=== PATIENT | female | born 1975 | race Caucasian/White ===

== ENCOUNTER 2020-10-25 11:52 | Inpatient (IN) | payer MEDICAID ==
[~2020-10-25] VITALS: Ht 167.6 cm; Wt 110.7 kg
[2020-10-25 13:52] LABS: Basophils # (auto) 0.1 10 ^3/uL (0-0.2); Basophils % (auto) 0.7 % (0.0-2.0); Eosinophils # (auto) 0.1 10 ^3/uL (0-0.8); Eosinophils % (auto) 0.8 % (0.0-7.0); Hematocrit 42.1 % (36.0-46.0); Hemoglobin 14.1 g/dL (12.2-16.2); Lymphocytes # (auto) 2.4 10 ^3/uL (0.4-5.4); Lymphocytes % (auto) 27.4 % (10.0-50.0); Mean Corpuscular Hemoglobin 27.6 pg (28.0-32.0); Mean Corpuscular Hgb Conc. 33.3 g/dL (32.0-36.0); Mean Corpuscular Volume 82.9 fL (80.0-100.0); Monocytes # (auto) 0.5 10 ^3/uL (0-1.3); Monocytes % (auto) 6.1 % (0.0-12.0); Neutrophils # (auto) 5.6 10 ^3/uL (1.6-8.6); Platelet Count (auto) 336 10^3/uL (140-450); Red Blood Cells 5.08 10^6/uL (4.0-5.20); Red Cell Distribution Width 15.4 % (11.8-14.3); White Blood Cell 8.6 10^3/uL (4.4-10.8)
[2020-10-25 14:02] LABS: Alanine Aminotransferase 30 U/L (13-56); Albumin 3.6 g/dL (3.4-5.0); Anion Gap 7 (5-15); Aspartate Aminotransferase 20 U/L (15-37); BUN/Creatinine Ratio 15.2; Blood Urea Nitrogen 12 mg/dL (7-18); Carbon Dioxide 23 mmol/L (21-32); Chloride 107 mmol/L (98-107); GFR African American 102 mL/min; GFR Non-African American 84 mL/min; Glucose 98 mg/dL (74-106); Potassium 4.1 mmol/L (3.5-5.1); Sodium 137 mmol/L (136-145)
[2020-10-25 14:06] LABS: Alkaline Phosphatase 77 U/L (45-117); Bilirubin, Total 0.2 mg/dL (0.2-1.0); Total Protein 7.9 g/dL (6.4-8.2)
[2020-10-25 17:01] LABS: Urine Bacteria FEW /hpf (None Seen); Urine Blood Negative /uL (Negative); Urine Specific Gravity 1.021 (1.001-1.035); Urine WBC 1 /hpf (0 - 5)
[2020-10-25] MEDS ORDERED: SODIUM CHLORIDE 0.9% 1,000 ML IVB ONE (17:15)
[2020-10-25 17:49] LABS: INR 0.98 (0.9-1.15); Partial Thromboplastin Time 27.7 sec (23.0-31.2)
[2020-10-25 18:26] LABS: Magnesium 2.1 mg/dL (1.6-2.6)
[2020-10-25 18:36] LABS: Alcohol, Urine < 3.0 mg/dL (0-10); Amphetamine Screen, Urine NEGATIVE (NEGATIVE); Barbiturate Scree,Urine NEGATIVE (NEGATIVE); Benzodiazephine Screen, Urine NEGATIVE (NEGATIVE); Cannabinoid Screen, Urine NEGATIVE (NEGATIVE); Cocaine Screen, Urine NEGATIVE (NEGATIVE); Opiate Scree,Urine NEGATIVE (NEGATIVE); Phencyclidine Screen, Urine NEGATIVE (NEGATIVE)
[2020-10-25] MEDS ORDERED: PHENYTOIN IV DILANTIN 1,000 MG in SODIUM CHL 0.9% 250 ML IV ONE (19:45)
[2020-10-25] MEDS ORDERED: cefTRIAXone 1GM/50ML D5W 50 ML IV ONE (20:15)
[2020-10-25] MEDS ORDERED: DOCUSATE SOD 100 MG CAP PO PRN (20:45)
[2020-10-25] MEDS ORDERED: ACETAMINOPHEN 325 MG TAB PO PRN (20:45)
[2020-10-25] MEDS ORDERED: ALUM & MAG HYDROX-SIMETH LIQ(MAALOX) 30 ML PO PRN (20:45)
[2020-10-25] MEDS: ONDANSETRON HCL 4 MG/2 ML VIAL IV PRN (22:27)
[2020-10-25] MEDS: SODIUM CHLOR 0.9% PF (SALINE LOCK) 10ML VIAL/SYR IV SCH (22:27)
[2020-10-25 22:34] VITALS: BP 126/70
[2020-10-25 23:00] VITALS: BP 126/70
[2020-10-25] MEDS: LORazepam 0.5 MG TAB PO PRN (23:48)
[2020-10-26] MEDS ORDERED: MELA3TAB27 PO (03:06)
[2020-10-26] MEDS ORDERED: ASPI-543 PO (03:06)
[2020-10-26] MEDS ORDERED: PHE100C PO (03:06)
[2020-10-26 05:00] VITALS: BP 98/57
[2020-10-26 05:36] LABS: Basophils # (auto) 0 10 ^3/uL (0-0.2); Basophils % (auto) 0.4 % (0.0-2.0); Eosinophils # (auto) 0.1 10 ^3/uL (0-0.8); Eosinophils % (auto) 1.2 % (0.0-7.0); Hematocrit 37.5 % (36.0-46.0); Lymphocytes # (auto) 2.5 10 ^3/uL (0.4-5.4); Lymphocytes % (auto) 30.7 % (10.0-50.0); Mean Corpuscular Hemoglobin 28.5 pg (28.0-32.0); Mean Corpuscular Hgb Conc. 34.6 g/dL (32.0-36.0); Mean Corpuscular Volume 82.2 fL (80.0-100.0); Monocytes # (auto) 0.5 10 ^3/uL (0-1.3); Monocytes % (auto) 6.8 % (0.0-12.0); Neutrophils # (auto) 4.9 10 ^3/uL (1.6-8.6); Neutrophils % (auto) 60.9 % (37.0-80.0); Nucleated Red Blood Cells % 0.1 %; Platelet Count (auto) 269 10^3/uL (140-450); Red Blood Cells 4.56 10^6/uL (4.0-5.20); Red Cell Distribution Width 15.4 % (11.8-14.3)
[2020-10-26 05:54] LABS: Calcium 8.1 mg/dL (8.5-10.1)
[2020-10-26 05:58] LABS: BUN/Creatinine Ratio 17.8
[2020-10-26] MEDS: SODIUM CHLOR 0.9% PF (SALINE LOCK) 10ML VIAL/SYR IV SCH ×3 (06:19→21:24)
[2020-10-26 08:00] VITALS: BP 98/57
[2020-10-26 09:00] VITALS: BP 94/52
[2020-10-26] MEDS ORDERED: PHENYTOIN IV DILANTIN 500 MG in SODIUM CHL 0.9% 100 ML IV SCH (10:00)
[2020-10-26 13:00] VITALS: BP 126/64
[2020-10-26] MEDS: HYDROcodone-ACET 5/325MG TAB PO PRN ×2 (13:42→18:19)
[2020-10-26] MEDS: PHENYTOIN SODIUM 100 MG CAP PO SCH ×2 (15:42→21:25)
[2020-10-26 17:00] VITALS: BP 113/58
[2020-10-26] MEDS ORDERED: LORazepam 2MG/ML-1ML VIAL IV PRN ×2 (21:15)
[2020-10-26] MEDS ORDERED: PHENYTOIN IV DILANTIN 500 MG in SODIUM CHL 0.9% 100 ML IV ONE (21:15)
[2020-10-26] MEDS: cefTRIAXone 1GM/50ML D5W 50 ML IV SCH (21:23)
[2020-10-26] MEDS: ONDANSETRON HCL 4 MG/2 ML VIAL IV PRN (21:31)
[2020-10-26 22:00] VITALS: BP 123/59
[2020-10-26] MEDS: PRAMIPEXOLE DIHYDROCHLORIDE MO 0.25 MG TAB PO SCH (22:31)
[2020-10-26 23:02] LABS: % Iron Saturation 21.9 % (15-50)
[2020-10-27] MEDS ORDERED: diphenhdrAMINE HCL 50 MG/1 ML VL IV PRN (02:45)
[2020-10-27] MEDS ORDERED: diphenhdrAMINE HCL 50 MG/1 ML VL IV ONE (02:45)
[2020-10-27] MEDS ORDERED: methylPREDNISolone SOD SUCC 125 MG/2 ML VL IV ONE (03:15)
[2020-10-27 05:00] VITALS: BP 125/58
[2020-10-27] MEDS: PHENYTOIN SODIUM 100 MG CAP PO SCH (06:00)
[2020-10-27] MEDS: SODIUM CHLOR 0.9% PF (SALINE LOCK) 10ML VIAL/SYR IV SCH ×3 (06:06→21:44)
[2020-10-27 09:00] VITALS: BP 100/58
[2020-10-27] MEDS: THIAMINE 100mg/ml INJ (200mg/2ml VIAL) IV SCH (09:59)
[2020-10-27] MEDS: HYDROcodone-ACET 5/325MG TAB PO PRN (11:27)
[2020-10-27] MEDS ORDERED: FOLIC ACID 1 MG, MULTIPLE VITAMIN 10 ML, MAGNESIUM SULF SDV 50% 8 MEQ, THIAMINE INJ 100... INJ SCH ×5 (12:00)
[2020-10-27 13:00] VITALS: BP 127/72
[2020-10-27 17:00] VITALS: BP 121/68
[2020-10-27] MEDS: cefTRIAXone 1GM/50ML D5W 50 ML IV SCH (21:10)
[2020-10-27] MEDS: PRAMIPEXOLE DIHYDROCHLORIDE MO 0.25 MG TAB PO SCH (21:13)
[2020-10-27] MEDS: ASCORBIC ACID 500 MG TAB PO SCH (21:45)
[2020-10-27] MEDS: FERROUS SULFATE 325mg EC TAB PO SCH (21:46)
[2020-10-27 22:00] VITALS: BP_SYST 106; BP_SYST 120; BP_SYST 132; BP_DIAS 49; BP_DIAS 73; BP_DIAS 77
[2020-10-27] MEDS: LORazepam 0.5 MG TAB PO PRN (23:17)
[2020-10-28 05:00] VITALS: BP_SYST 104; BP_SYST 110; BP_SYST 95; BP_DIAS 59; BP_DIAS 69; BP_DIAS 72
[2020-10-28] MEDS: SODIUM CHLOR 0.9% PF (SALINE LOCK) 10ML VIAL/SYR IV SCH (06:00)
[2020-10-28 07:15] LABS: Albumin 3.3 g/dL (3.4-5.0); Calcium 8.2 mg/dL (8.5-10.1); Potassium 4.1 mmol/L (3.5-5.1)
[2020-10-28 07:20] LABS: Bilirubin, Total 0.1 mg/dL (0.2-1.0); Total Protein 7.1 g/dL (6.4-8.2)
[2020-10-28 09:00] VITALS: BP 112/79
[2020-10-28] MEDS: ASCORBIC ACID 500 MG TAB PO SCH (10:12)
[2020-10-28] MEDS: THIAMINE 100mg/ml INJ (200mg/2ml VIAL) IV SCH (10:12)
[2020-10-28] MEDS: FERROUS SULFATE 325mg EC TAB PO SCH (10:13)
[2020-10-28 10:56] VITALS: BP 112/79
[2020-10-28] MEDS ORDERED: diphenhdrAMINE HCL 25 MG CAP PO ONE (11:00)
[2020-10-29] MEDS ORDERED: PHENYTOIN SODIUM 100 MG CAP PO SCH (14:00)
== END 2020-10-28 12:00 | disposition home or self-care (01) | DRG 53 ==
LOC: ER 11:52 → EDBD 11:52 → TELE 20:42 → TELE-WESTW 22:10
PROVIDERS: ADMIT Hospitalist; ATTEND Internal Medicine
DX: G40.209 Localization-related (focal) (partial) symptomatic epilepsy and epileptic syndromes with complex partial seizures, not intractable, without status epilepticus (principal); E44.1 Mild protein-calorie malnutrition; N39.0 Urinary tract infection, site not specified; R55 Syncope and collapse; G47.00 Insomnia, unspecified; E66.9 Obesity, unspecified; F10.229 Alcohol dependence with intoxication, unspecified; Z20.822 Contact with and (suspected) exposure to COVID-19; G25.81 Restless legs syndrome; Z91.19 Patient's noncompliance with other medical treatment and regimen; Z80.6 Family history of leukemia; Z81.8 Family history of other mental and behavioral disorders; Z82.3 Family history of stroke; Z82.49 Family history of ischemic heart disease and other diseases of the circulatory system; Z83.2 Family history of diseases of the blood and blood-forming organs and certain disorders involving the immune mechanism; Z83.3 Family history of diabetes mellitus; Z91.14 Patient's other noncompliance with medication regimen; Z68.37 Body mass index [BMI] 37.0-37.9, adult; E88.09 Other disorders of plasma-protein metabolism, not elsewhere classified
CPT/HCPCS: 36415; 70450; 70551; 71045; 80048; 80053; 80185; 80307; 80320; 81001; 82728; 83540; 83550; 83735; 84484; 84702; 85025; 85610; 85730; 87086; 87426; 93005; 95819; 96365; 96367; G0378; J0696; J2405

== ENCOUNTER 2021-12-31 09:30 | Emergency (ER) | payer MEDICAID ==
[~2021-12-31] VITALS: Ht 167.6 cm; Wt 86.0 kg
[2021-12-31 09:30] VITALS: BP 129/64
[~2021-12-31 09:30] MED LIST: ASPI-543 PO; MELA3TAB27 PO; PHE100C PO
[2021-12-31] MEDS ORDERED: KETOROLAC TROMETH 60MG/2ML VIAL IM ONE (10:00)
[2021-12-31] MEDS ORDERED: HYDR-4902 PO (12:31)
== END 2021-12-31 15:20 | disposition home or self-care (01) ==
LOC: ER 09:30
DX: S39.012A Strain of muscle, fascia and tendon of lower back, initial encounter (principal); Z79.82 Long term (current) use of aspirin; Z79.899 Other long term (current) drug therapy; X50.1XXA Overexertion from prolonged static or awkward postures, initial encounter; Y93.89 Activity, other specified; Y92.89 Other specified places as the place of occurrence of the external cause; Y99.8 Other external cause status
CPT/HCPCS: 72100; 96372; 99283; J1885

== ENCOUNTER 2022-12-18 07:37 | Emergency (ER) | payer MEDICAID ==
[~2022-12-18] VITALS: Ht 167.6 cm; Wt 104.0 kg
[~2022-12-18 07:37] MED LIST changes: +HYDR-4902 PO; -PHE100C PO; +PHEN1CAP60 PO
[2022-12-18 08:28] LABS: Basophils # (auto) 0 10 ^3/uL (0-0.2); Basophils % (auto) 0.4 % (0.0-2.0); Eosinophils # (auto) 0.1 10 ^3/uL (0-0.8); Eosinophils % (auto) 1.5 % (0.0-7.0); Hematocrit 41.1 % (36.0-46.0); Hemoglobin 13.8 g/dL (12.2-16.2); Lymphocytes # (auto) 1.9 10 ^3/uL (0.4-5.4); Lymphocytes % (auto) 29.6 % (10.0-50.0); Mean Corpuscular Hemoglobin 29.4 pg (28.0-32.0); Mean Corpuscular Hgb Conc. 33.6 g/dL (32.0-36.0); Mean Corpuscular Volume 87.6 fL (80.0-100.0); Monocytes # (auto) 0.4 10 ^3/uL (0-1.3); Monocytes % (auto) 6.9 % (0.0-12.0); Neutrophils # (auto) 3.9 10 ^3/uL (1.6-8.6); Neutrophils % (auto) 61.6 % (37.0-80.0); Nucleated Red Blood Cells % 0.1 %; Red Cell Distribution Width 14.3 % (11.8-14.3); White Blood Cell 6.4 10^3/uL (4.4-10.8)
[2022-12-18 08:35] LABS: Albumin 3.8 g/dL (3.4-5.0); Calcium 9.2 mg/dL (8.5-10.1); Potassium 4.3 mmol/L (3.5-5.1)
[2022-12-18 08:40] LABS: Bilirubin, Total 0.2 mg/dL (0.2-1.0); Total Protein 7.6 g/dL (6.4-8.2)
[2022-12-18 10:13] LABS: Urine Bacteria NONE SEEN /hpf (None Seen); Urine Blood Negative /uL (Negative); Urine Specific Gravity 1.006 (1.001-1.035); Urine WBC 1 /hpf (0 - 5)
[2022-12-18 11:30] VITALS: BP 114/70
[2022-12-19] MEDS ORDERED: CEPH500C PO (22:34)
== END 2022-12-18 11:34 | disposition home or self-care (01) ==
LOC: ER 07:37
DX: R10.84 Generalized abdominal pain (principal); R10.11 Right upper quadrant pain; R42 Dizziness and giddiness; Z98.51 Tubal ligation status
CPT/HCPCS: 36415; 74176; 80053; 81001; 83690; 84484; 85025

== ENCOUNTER 2022-12-19 08:34 | Inpatient (IN) | payer MEDICAID ==
[~2022-12-19] VITALS: Ht 167.6 cm; Wt 109.7 kg
[2022-12-19 10:20] LABS: Urine Bacteria FEW /hpf (None Seen); Urine Blood 3+ /uL (Negative); Urine Mucus FEW (None Seen); Urine Specific Gravity 1.018 (1.001-1.035); Urine WBC 15 /hpf (0 - 5)
[2022-12-19 10:37] LABS: Basophils # (auto) 0 10 ^3/uL (0-0.2); Basophils % (auto) 0.5 % (0.0-2.0); Eosinophils # (auto) 0.1 10 ^3/uL (0-0.8); Eosinophils % (auto) 1.3 % (0.0-7.0); Hematocrit 40.2 % (36.0-46.0); Hemoglobin 13.5 g/dL (12.2-16.2); Lymphocytes # (auto) 2.5 10 ^3/uL (0.4-5.4); Lymphocytes % (auto) 34.9 % (10.0-50.0); Mean Corpuscular Hemoglobin 29.5 pg (28.0-32.0); Mean Corpuscular Hgb Conc. 33.7 g/dL (32.0-36.0); Mean Corpuscular Volume 87.6 fL (80.0-100.0); Monocytes # (auto) 0.5 10 ^3/uL (0-1.3); Monocytes % (auto) 6.6 % (0.0-12.0); Neutrophils # (auto) 4.1 10 ^3/uL (1.6-8.6); Neutrophils % (auto) 56.7 % (37.0-80.0); Red Blood Cells 4.58 10^6/uL (4.0-5.20); Red Cell Distribution Width 14.3 % (11.8-14.3); White Blood Cell 7.2 10^3/uL (4.4-10.8)
[2022-12-19] MEDS ORDERED: cefTRIAXone 1GM/50ML D5W 50 ML IV ONE (11:00)
[2022-12-19 11:03] LABS: Albumin 3.8 g/dL (3.4-5.0); Calcium 9.1 mg/dL (8.5-10.1)
[2022-12-19 11:07] LABS: BUN/Creatinine Ratio 13.1 (10.0-20.0); Bilirubin, Total 0.3 mg/dL (0.2-1.0)
[2022-12-19 11:35] LABS: INR 1.01 (0.9-1.15)
[2022-12-19] MEDS ORDERED: DOCUSATE SOD 100 MG CAP PO PRN (14:15)
[2022-12-19] MEDS ORDERED: NITROGLYCERIN 0.4 MG SL TAB SL PRN (14:15)
[2022-12-19] MEDS ORDERED: MORPHINE SULFATE INJ 2 MG/ml SYRG IV PRN (14:15)
[2022-12-19] MEDS: HYDROcodone-ACET 5/325MG TAB PO PRN ×2 (15:29→20:46)
[2022-12-19] MEDS: ENOXAPARIN SOD 40 MG/0.4 ML SYRINGE SC SCH (19:53)
[2022-12-19 22:20] VITALS: BP 123/68
[2022-12-19] MEDS: MORPHINE SULFATE INJ 2 MG/ml SYRG IV PRN (22:22)
[2022-12-19] MEDS: PIPERACILLIN-TAZOB 3.375GM 100 ML IV SCH (22:22)
[2022-12-19] MEDS ORDERED: CEPH500C PO (22:34)
[2022-12-20] VITALS (7 sets, daily range): BP systolic 113–143; BP diastolic 67–79
[2022-12-20] MEDS: PIPERACILLIN-TAZOB 3.375GM 100 ML IV SCH ×3 (05:43→21:14)
[2022-12-20 06:39] LABS: Basophils # (auto) 0 10 ^3/uL (0-0.2); Basophils % (auto) 0.4 % (0.0-2.0); Eosinophils # (auto) 0.1 10 ^3/uL (0-0.8); Hematocrit 37.3 % (36.0-46.0); Hemoglobin 12.7 g/dL (12.2-16.2); Lymphocytes # (auto) 2.3 10 ^3/uL (0.4-5.4); Lymphocytes % (auto) 35.5 % (10.0-50.0); Mean Corpuscular Hemoglobin 29.9 pg (28.0-32.0); Mean Corpuscular Hgb Conc. 34.1 g/dL (32.0-36.0); Mean Corpuscular Volume 87.7 fL (80.0-100.0); Monocytes # (auto) 0.5 10 ^3/uL (0-1.3); Monocytes % (auto) 7.9 % (0.0-12.0); Neutrophils # (auto) 3.5 10 ^3/uL (1.6-8.6); Neutrophils % (auto) 54.2 % (37.0-80.0); Nucleated Red Blood Cells % 0.2 %; Red Blood Cells 4.25 10^6/uL (4.0-5.20); Red Cell Distribution Width 14.2 % (11.8-14.3); White Blood Cell 6.5 10^3/uL (4.4-10.8)
[2022-12-20 07:10] LABS: Albumin 3.3 g/dL (3.4-5.0); BUN/Creatinine Ratio 15.9 (10.0-20.0); Bilirubin, Total 0.2 mg/dL (0.2-1.0); Calcium 8.5 mg/dL (8.5-10.1); Potassium 4.1 mmol/L (3.5-5.1); Total Protein 7.1 g/dL (6.4-8.2)
[2022-12-20] MEDS: ONDANSETRON HCL 4 MG/2 ML VIAL IV PRN (08:14)
[2022-12-20] MEDS: ENOXAPARIN SOD 40 MG/0.4 ML SYRINGE SC SCH (10:19)
[2022-12-20] MEDS: FAMOTIDINE 20 MG TAB PO SCH (10:19)
[2022-12-20] MEDS: SODIUM CHLORIDE 0.9% 1,000 ML IV SCH ×2 (10:30→19:41)
[2022-12-20] MEDS ORDERED: ALPRAZolam 0.5 MG TAB PO PRN (10:30)
[2022-12-20] MEDS ORDERED: VANCOMYCIN PER PHARMACY 0 MG IV SCH (10:45)
[2022-12-20] MEDS: MORPHINE SULFATE INJ 2 MG/ml SYRG IV PRN (11:41)
[2022-12-20] MEDS: VANCOMYCIN 1GM/250ML 250 ML IV SCH ×2 (13:29→19:40)
[2022-12-20] MEDS: HYDROcodone-ACET 5/325MG TAB PO PRN (21:11)
[2022-12-20] MEDS: ATORVASTATIN 20 MG TAB PO SCH (21:11)
[2022-12-20] MEDS ORDERED: diphenhdrAMINE HCL 50 MG/1 ML VL IV PRN (22:15)
[2022-12-21] MEDS: VANCOMYCIN 1GM/250ML 250 ML IV SCH (01:04)
[2022-12-21 05:00] VITALS: BP 105/54
[2022-12-21] MEDS: PIPERACILLIN-TAZOB 3.375GM 100 ML IV SCH ×3 (05:19→22:56)
[2022-12-21] MEDS: SODIUM CHLORIDE 0.9% 1,000 ML IV SCH ×3 (06:23→18:50)
[2022-12-21] MEDS: ENOXAPARIN SOD 40 MG/0.4 ML SYRINGE SC SCH (08:30)
[2022-12-21] MEDS: FAMOTIDINE 20 MG TAB PO SCH (08:30)
[2022-12-21] MEDS: HYDROcodone-ACET 5/325MG TAB PO PRN ×2 (08:31→17:05)
[2022-12-21 09:00] VITALS: BP 108/61
[2022-12-21 12:41] VITALS: BP 121/67
[2022-12-21 16:37] VITALS: BP 101/55
[2022-12-21] MEDS: ACETAMINOPHEN 325 MG TAB PO PRN (20:35)
[2022-12-21] MEDS: ONDANSETRON HCL 4 MG/2 ML VIAL IV PRN (20:39)
[2022-12-21 22:00] VITALS: BP 130/72
[2022-12-21] MEDS: ATORVASTATIN 20 MG TAB PO SCH (22:55)
[2022-12-22 05:00] VITALS: BP 111/61
[2022-12-22] MEDS: PIPERACILLIN-TAZOB 3.375GM 100 ML IV SCH ×3 (05:31→22:33)
[2022-12-22] MEDS: HYDROcodone-ACET 5/325MG TAB PO PRN ×2 (08:52→16:41)
[2022-12-22] MEDS: FAMOTIDINE 20 MG TAB PO SCH (08:52)
[2022-12-22] MEDS: ENOXAPARIN SOD 40 MG/0.4 ML SYRINGE SC SCH (08:52)
[2022-12-22 08:53] VITALS: BP 108/46
[2022-12-22] MEDS: SODIUM CHLORIDE 0.9% 1,000 ML IV SCH ×2 (12:30→22:32)
[2022-12-22 12:39] VITALS: BP 124/55
[2022-12-22 16:43] VITALS: BP 121/61
[2022-12-22] MEDS: ONDANSETRON HCL 4 MG/2 ML VIAL IV PRN (18:24)
[2022-12-22] MEDS: ACETAMINOPHEN 325 MG TAB PO PRN (18:47)
[2022-12-22 22:00] VITALS: BP 117/64
[2022-12-22] MEDS: ATORVASTATIN 20 MG TAB PO SCH (22:23)
[2022-12-22] MEDS: TEMAZEPAM 15 MG CAP PO PRN (22:32)
[2022-12-23 05:00] VITALS: BP 96/47
[2022-12-23] MEDS: PIPERACILLIN-TAZOB 3.375GM 100 ML IV SCH ×4 (06:21→22:19)
[2022-12-23] MEDS: ACETAMINOPHEN 325 MG TAB PO PRN ×2 (07:27→13:12)
[2022-12-23 08:21] VITALS: BP 102/55
[2022-12-23] MEDS: SODIUM CHLORIDE 0.9% 1,000 ML IV SCH ×3 (08:30→23:31)
[2022-12-23] MEDS: FAMOTIDINE 20 MG TAB PO SCH (09:48)
[2022-12-23] MEDS: ENOXAPARIN SOD 40 MG/0.4 ML SYRINGE SC SCH (09:50)
[2022-12-23] MEDS: HYDROcodone-ACET 5/325MG TAB PO PRN ×2 (09:58→17:39)
[2022-12-23] MEDS: ONDANSETRON HCL 4 MG/2 ML VIAL IV PRN ×2 (09:58→17:39)
[2022-12-23 13:00] VITALS: BP 145/83
[2022-12-23 17:00] VITALS: BP 134/73
[2022-12-23 22:00] VITALS: BP 131/78
[2022-12-23] MEDS: ATORVASTATIN 20 MG TAB PO SCH (22:14)
[2022-12-23] MEDS: TEMAZEPAM 15 MG CAP PO PRN (22:14)
[2022-12-24 05:00] VITALS: BP 107/53
[2022-12-24] MEDS: PIPERACILLIN-TAZOB 3.375GM 100 ML IV SCH (05:42)
[2022-12-24 09:00] VITALS: BP 124/68
[2022-12-24] MEDS: FAMOTIDINE 20 MG TAB PO SCH (09:05)
[2022-12-24] MEDS: ENOXAPARIN SOD 40 MG/0.4 ML SYRINGE SC SCH (09:07)
[2022-12-24] MEDS ORDERED: AML5T PO ×2 (11:54)
[2022-12-24] MEDS ORDERED: HYDR-4902 PO (11:55)
[2022-12-24 13:00] VITALS: BP 122/74
[2022-12-24] MEDS: SODIUM CHLORIDE 0.9% 1,000 ML IV SCH (16:08)
== END 2022-12-24 16:38 | disposition home or self-care (01) | DRG 385 ==
LOC: ER 08:34 → TELE 14:16 → TELE-WESTW 22:00
PROVIDERS: ADMIT Nurse Practitioner; ATTEND Nurse Practitioner
DX: L72.3 Sebaceous cyst (principal); E66.01 Morbid (severe) obesity due to excess calories; K80.20 Calculus of gallbladder without cholecystitis without obstruction; E78.5 Hyperlipidemia, unspecified; J98.11 Atelectasis; G40.909 Epilepsy, unspecified, not intractable, without status epilepticus; Z81.8 Family history of other mental and behavioral disorders; Z82.3 Family history of stroke; Z82.49 Family history of ischemic heart disease and other diseases of the circulatory system; Z83.2 Family history of diseases of the blood and blood-forming organs and certain disorders involving the immune mechanism; Z83.3 Family history of diabetes mellitus; L03.90 Cellulitis, unspecified; Z68.38 Body mass index [BMI] 38.0-38.9, adult; N39.0 Urinary tract infection, site not specified
CPT/HCPCS: 36415; 76705; 80053; 80202; 81001; 82378; 83605; 83690; 85025; 85610; 86301; 86304; 87040; 96365; 96372; G0378; J0696; J2405; J2543

== ENCOUNTER 2024-08-17 17:50 | Emergency (ER) | payer MEDICAID ==
[~2024-08-17] VITALS: Ht 167.6 cm; Wt 110.9 kg
[~2024-08-17 17:50] MED LIST changes: -ASPI-543 PO; -MELA3TAB27 PO; -PHEN1CAP60 PO
[2024-08-17 18:06] VITALS: BP 147/55; PULSE 86; RESP 20; O2SAT 96
[2024-08-17] MEDS ORDERED: CEPH500C PO (21:27)
[2024-08-17] MEDS ORDERED: ACET500T58 PO (21:27)
--- NOTE | 2024-08-17 21:29 | ED.PDOC ---
HPI Comments 49-YEAR-OLD FEMALE PRESENTS TO ER WITH COMPLAINTS OF LACERATION TO RIGHT HAND X1 DAY. PATIENT REPORTS THAT SHE SUSTAINED A LACERATION TO RIGHT HAND S/P A BROKEN PIECE OF GLASS FROM A CLEAN DISH MUG MAKING IMPACT WITH HER RIGHT HAND WHEN SHE WAS WASHING DISHES AT 4:00 P.M. PRIOR TO ARRIVAL TO ER. SHE REPORTS 4/10 PAIN LOCALIZED TO LACERATION OF RIGHT HAND. DENIES USE OF MEDICATIONS FOR CURRENT SYMPTOMS AND STATES SHE WAS UP-TO-DATE ON HIS TETANUS SHOT. DENIES FOREIGN BODY SENSATION OR ANY FURTHER SYMPTOMS/COMPLAINTS Chief Complaint: Laceration Time Seen by MD: 18:16 Primary Care Provider: HELEN Reviewed Notes: Nurses Notes, Medications, Allergies Allergies: Coded Allergies: NO KNOWN ALLERGIES (Unverified , 10/25/20) Home Meds Active Scripts Cephalexin Monohydrate (Cephalexin) 500 Mg Cap, 1 CAP PO BID for 7 Days, #14 CAP 0 Refills Prov:RON LANE 08/17/24 Acetaminophen (Acetaminophen) 500 Mg Tab, 500 MG PO Q4HPRN, #30 TAB 0 Refills Prov:RON LANE 08/17/24 Hydrocodone-Acetaminophen (Hydrocodone Bitartrate/AC 5-325 mg) 1 Tab Tab, 1 TAB PO Q8HP PRN for 5 Days, #15 TAB Prov:MANJIT CONTRERAS NP 12/24/22 Information Source: Patient Mode of Arrival: Ambulatory Complexity: Simple Laceration Length (cm): 4 Skin Type: Irregular Past Medical History PAST MEDICAL HISTORY: Seizures Surgical History: BTL TECHNICIAN ANATOMIC PATHOLOGY History: No Pertinent TECHNICIAN ANATOMIC PATHOLOGY History Family History Family History: Family hx of HTN Social History Smoker: Non-Smoker Alcohol: Rarely Drugs: Denies Drug Use Lives In: Home Constitutional: denies: chills, diaphoresis, fatigue, fever, malaise, sweats, weakness, others EENTM: denies: blurred vision, double vision, ear bleeding, ear discharge, ear drainage, ear pain, ear ringing, eye pain, eye redness, hearing loss, mouth pain, mouth swelling, nasal discharge, nose bleeding, nose congestion, nose pain, photophobia, tearing, throat pain, throat swelling, voice changes, others Respiratory: denies: cough, hemoptysis, orthopnea, SOB at rest, shortness of breath, SOB with excertion, stridor, wheezing, others Cardiovascular: denies: chest pain, dizzy spells, diaphoresis, Dyspnea on exertion, edema, irregular heart beat, left arm pain, lightheadedness, palpitations, PND, syncope, others Gastrointestinal: denies: abdomen distended, abdominal pain, blood streaked bowels, constipated, diarrhea, dysphagia, difficulty swallowing, hematemesis, melena, nausea, poor appetite, poor fluid intake, rectal bleeding, rectal pain, vomiting, others Genitourinary: denies: abnormal vagina bleeding, burning, dyspareunia, dysuria, flank pain, frequency, hematuria, incontinence, pain, , vagina discharge, urgency, others Neurological: denies: dizziness, fainting, headache, left sided numbness, left sided weakness, numbness, paresthesia, pre-existing deficit, right sided numbness, right sided weakness, seizure, speech problems, tingling, tremors, weakness, others Musculoskeletal: denies: back pain, gout, joint pain, joint swelling, muscle pain, muscle stiffness, neck pain, others Integumetry: reports: others ( STATED IN HPI) Allergic/Immunocompromised: denies: Difficulty Healing, Frequent Infections, Hives, Itching, others Hematologic/Lymphatic: denies: anemia, blood clots, easy bleeding, easy bruising, swollen glands, others Endocrine: denies: excessive hunger, excessive sweating, excessive thirst, excessive urination, flushing, intolerance to cold, intolerance to heat, unexplained weight gain, unexplained weight loss, others Psychiatric: denies: anxiety, bipolar disorder, depression, hopeless, panic disorder, schizophrenia, sleepless, suicidal, others Physical Exam General Appearance: No Apparent Distress, Obese HEENT: PERRL/EOMI Neck: Full Range of Motion, Non-Tender, Normal Respiratory: Chest Non-Tender, Lungs Clear, No Accessory Muscle Use, No Respiratory Distress, Normal Breath Sounds Cardiovascular: No Murmur, No Gallop, Regular Rate/Rhythm Breast Exam: Deferred Gastrointestinal: NOT DONE Genitalia: Deferred Pelvic: Deferred Rectal: Deferred Extremities: Normal capillary refill, Normal range of motion Neurologic: Alert, No Motor Deficits, Normal Affect, Normal Mood, No Sensory Deficits Cerebellar Function: Normal Reflexes: Normal Skin: Dry, Warm Peripheral Pulses: 2+ Radial (R), 2+ Radial (L), 2+ Brachial (R), 2+ Brachial (L) Lymphatic: No Adenopathy Was a procedure done? Was a procedure done?: Yes Sedation Sedation?: No Laceration Repair : Location RIGHT HAND Length 4 CM Anesthetic: Lidocaine (1%), Without epi Laceration Repair Prep: Saline (AND PEROXIDE), by Irrigation (WITHOUT ANY SIGNS OF FOREIGN BODY) Laceration Repair Wound Comple: epidermis/dermis repair Laceration Repair: Number of sutures (4 PLACED), Size (4-0), Nylon, Simple, Non-adherent gauze Informed consent obtained: Yes Risks, benefits, and alternati: Yes Images 1 - 4 CM LACERATION NOTED. SLIGHT TTP/SWELLING/ERYTHEMA LOCALIZED TO WOUND EDGES. NO FOREIGN BODY/FURTHER SKIN CHANGES NOTED. PATIENT ABLE TO FULLY MOVE ALL FINGERS RIGHT HAND. PULSES INTACT Differential diagnosis Generic Laceration: Fracture, Retained Foriegn Body, Neurovascular Injury X-Ray, Labs, Meds, VS Vital Signs Date Time Temp Pulse Resp B/P (MAP) Pulse Ox O2 Delivery O2 Flow Rate FiO2 08/17/24 18:06 97.3 86 20 147/55 (85) 96 WOUND CLEANING PERFORMED AT BEDSIDE WOUND CARE/CLEANING DISCUSSED AND ADVISED ADVISED TO FOLLOW UP IN TWO DAYS FOR WOUND CHECK ADVISED TO FOLLOW UP IN 10-14 DAYS FOR REMOVAL OF SUTURES ADVISED TO FOLLOW UP WITH PCP IN 1-2 DAYS PATIENT VERBALIZED UNDERSTANDING AND AGREEABLE WITH CURRENT PLAN OF CARE ADVISED TO RETURN TO ER IMMEDIATELY IF SYMPTOMS WORSEN Time of 1ST Reevaluation: 21:22 Reevaluation 1ST: N/A Patient Education/Counseling: Diagnosis, Treatment, Prognosis, Need For Follow Up Family Education/Counseling: No Family Present Departure 1 Departure Time of Disposition: 21:22 Impression: Primary Impression: Laceration of hand, right Qualified Codes: S61.411A - Laceration without foreign body of right hand, initial encounter Disposition: HOME / SELF CARE / HOMELESS Condition: Stable e-Prescriptions Cephalexin Monohydrate (Cephalexin) 500 Mg Cap 1 CAP PO BID for 7 Days, #14 CAP 0 Refills Prov: RON LANE 08/17/24 Acetaminophen (Acetaminophen) 500 Mg Tab 500 MG PO Q4HPRN, #30 TAB 0 Refills Prov: RON LANE 08/17/24 Discharged With: Self Critical Care Note Critical Care Time?: No Stability Stability form required: No Heart Score Heart Score: Heart Score Response (Comments) Value History N/A 0 EKG N/A 0 Age N/A 0 Risk Factors N/A 0 Troponin N/A 0 Total [address] Aug 17, 2024 21:29
== END 2024-08-17 22:20 | disposition home or self-care (01) ==
LOC: ER 18:00
DX: S61.411A Laceration without foreign body of right hand, initial encounter (principal); R56.9 Unspecified convulsions; Z98.51 Tubal ligation status; Z79.899 Other long term (current) drug therapy; W25.XXXA Contact with sharp glass, initial encounter; Y93.E6 Activity, residential relocation; Y92.89 Other specified places as the place of occurrence of the external cause; Y99.8 Other external cause status
CPT/HCPCS: 12002